=== PATIENT | male | born 1990 | race Caucasian/White ===

== ENCOUNTER 2019-03-17 13:54 | Emergency (ER) | payer OTHER, MEDICAID, SELFPAY ==
--- NOTE | 2019-03-17 14:14 | DI.RAD.S_ITS ---
PROCEDURE: XR SACRUM COCCYX MIN 2V INDICATIONS: pain sp fall TECHNIQUE: 3 views of the sacrum and coccyx acquired. COMPARISON: None. FINDINGS: Bones: No displaced fractures or dislocations of the sacrum or coccyx are evident. There may be early degenerative changes of the right sacroiliac joint. No widening of the sacroiliac joints is evident. Moderate degenerative changes of the pubic symphysis are present. Soft tissues: Visualized bowel gas pattern is normal. No suspicious soft tissue densities. IMPRESSION: No displaced sacrococcygeal fractures are evident. Dictated by: Chandrakant Xiong M.D. on 03/17/2019 at 13:54 Approved by: Chandrakant Xiong M.D. on 03/17/2019 at 13:55
--- NOTE | 2019-03-17 14:14 | DI.RAD.S_ITS ---
PROCEDURE: XR LUMBAR SPINE 2-3V INDICATIONS: pain sp fall TECHNIQUE: 3 views of the lumbar spine were acquired. COMPARISON: [facility], CR, XR CHEST 2 VIEWS, 07/12/2018, 14:55. FINDINGS: Bones: There are 5 lumbar-type vertebral bodies. The lowest intervertebral disk space is designated as L5-S1. There is an age-indeterminate anterior wedge deformity evident involving the L3 vertebral body with approximately 30% anterior vertebral height loss. Mild anterior wedging involving the L4 and L5 vertebral bodies is also present with approximately 5-10% anterior vertebral height loss. Otherwise, the remainder of the vertebral body heights are well-maintained without evidence to suggest an acute compression fracture. The bone mineralization is within normal limits. Mild degenerative changes of the lumbar spine are more prominent involving the lower lumbar facet joints. Soft tissues: The soft tissues of the imaged abdomen and pelvis are within normal limits. IMPRESSION: 1. Age indeterminant L3, L4, and L5 compression deformities. MRI may be helpful for better transition, if indicated. 2. Mild degenerative changes of the lumbar spine. Dictated by: Chandrakant Xiong M.D. on 03/17/2019 at 13:52 Approved by: Chandrakant Xiong M.D. on 03/17/2019 at 13:54
--- NOTE | 2019-03-17 14:14 | DI.RAD.S_ITS ---
PROCEDURE: XR THORACIC SPINE 2V INDICATIONS: pain sp fall TECHNIQUE: 2 views of the thoracic spine were acquired. COMPARISON: None. FINDINGS: Bones: On the lateral views, the cervicothoracic junction is not adequately visualized. The vertebral body heights are within normal limits throughout the thoracic spine without evidence to suggest acute compression fracture. The bone mineralization is within normal limits. Mild to moderate degenerative changes of the mid to lower thoracic spine are present. Soft tissues: The imaged overlying soft tissues of the chest are within normal limits. IMPRESSION: 1. No acute fractures of the thoracic spine are appreciated. 2. [id number] degenerative changes of the lower thoracic spine. Dictated by: Chandrakant Xiong M.D. on 03/17/2019 at 13:56 Approved by: Chandrakant Xiong M.D. on 03/17/2019 at 13:57
[2019-03-17 14:31] VITALS: BP 142/79; PULSE 79; RESP 18; TEMP 36.7; O2SAT 97; BMI 27.5
[2019-03-17] MEDS: LIDOCAINE PATCH 1 EACH ADH..PATCH TOP (14:46)
[2019-03-17] MEDS: HYDROCODONE/ACET 5/325 TABLET 1 TAB PO ×2 (14:47→16:05)
[2019-03-17] MEDS: KETOROLAC 60 MG/2 ML VIAL IM (14:47)
--- NOTE | 2019-03-17 14:53 | PC.NURSE ---
Pt fell on stairs,down 3 stairs on his bottom. Pt c/o left lower back pain and left buttock pain. Pt denies any loss of bowel/bladder. Pt has hx of back fractures
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
[2019-03-17 16:39] VITALS: BP 124/68; PULSE 68
== END 2019-03-17 16:39 | disposition home or self-care (01) ==
PROVIDERS: Emergency Provider Nurse Practitioner Family; PCP Nurse Practitioner Family
DX: S39.012A Strain of muscle, fascia and tendon of lower back, initial encounter (principal); W10.9XXA Fall (on) (from) unspecified stairs and steps, initial encounter
CPT/HCPCS: 72070; 72100; 72220; 96372; 99282; 99283; J1885

== ENCOUNTER 2020-02-14 18:29 | Emergency (ER) | payer OTHER, MEDICAID, SELFPAY ==
[2020-02-14 18:30] VITALS: BP 140/90; PULSE 100; RESP 18; TEMP 36.9; O2SAT 100; BMI 28.1
--- NOTE | 2020-02-14 18:47 | ED_ITS ---
HPI - Extremity Problem <KOMAL Preciado - Last Filed: 02/14/20 20:39> General Chief complaint: Extremity Problem,Nontraumatic Stated complaint: right elbow pain and large swelling mass Time Seen by Provider: 02/14/20 18:37 Source: patient Mode of arrival: Ambulatory Limitations: no limitations History of Present Illness HPI Narrative: 29-year-old male, presents emergency department for right elbow swelling for the past week. 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 Patient states approximately week ago he noticed a dull aching pain developing in his elbow and then swelling occurred. He states the swelling has been consistent but the pain is continued. He denies any trauma to the elbow, recent falls, shoulder pain, wrist pain, or any other injury. He denies any history of bursitis. He states the pain is worse with pressure directly on that area. He denies any fevers, chills, nausea, vomiting, diarrhea, chest pain, shortness of breath, or any other concerns. Patient denies any significant history other than past fractures of his lumbar spine. Related Data Previous Rx's Medication Instructions Recorded hydrocodone-acetaminophen [[place]] 1 tab PO Q4-6H PRN #10 tab 03/17/19 ketorolac 10 mg PO TID PRN #14 tab 03/17/19 ketorolac 10 mg PO Q6H PRN 5 Days #20 tab 02/14/20 Allergies Allergy/AdvReac Type Severity Reaction Status Date / Time No Known Drug Allergies Allergy Verified 02/14/20 18:38 Review of Systems <KOMAL Preciado - Last Filed: 02/14/20 20:39> Review of Systems Narrative: REVIEW OF SYSTEMS: GENERAL: Denies fever or chills. HENT: No head trauma. CARDIOVASCULAR: No chest pain. RESPIRATORY: No shortness of breath or cough. GASTROINTESTINAL: No nausea, vomiting, diarrhea, or constipation. GENITOURINARY: No flank pain. MUSCULOSKELETAL: Complains of right elbow pain, see HPI. INTEGUMENTARY: No rash, lesions, or pruritus. NEURO: No numbness, tingling. Patient History <KOMAL Preciado - Last Filed: 02/14/20 20:39> Medical History History of compression fracture of spine (Acute) Social History Smoking Status: Never smoker Smoking Status: Never smoker alcohol intake frequency: a few times a week Substance Use Type: does not use Exam <KOMAL Preciado - Last Filed: 02/14/20 20:39> Initial Vital Signs Initial Vital Signs: Vital Signs Temperature 98.5 F 02/14/20 18:30 Pulse Rate 100 H 02/14/20 18:30 Respiratory Rate 18 02/14/20 18:30 Blood Pressure 140/90 02/14/20 18:30 Pulse Oximetry 100 02/14/20 18:30 PHYSICAL EXAMINATION: GENERAL: 29-year-old healthy appearing male, awake and alert, answers questions promptly and appropriately. HENT: Normocephalic, atraumatic. EYES: Symmetrical, sclera white, no periorbital swelling. CARDIOVASCULAR: Regular rate. RESPIRATORY: Normal respiratory rate, trachea midline, airway patent. No stridor, nasal flaring or accessory muscle use. MUSCULOSKELETAL: Swelling and tenderness noted to right olecranon bursa, slight amount of erythema noted, no increased temp. Patient has decreased flexion elbow due to pain. No pain with palpation of shoulder or wrist. No surrounding laceration or significant erythema that would indicate cellulitis. Normal gait and coordination. Equal tone and mass bilaterally. Equal portfolio accountant strength bilaterally. SKIN: Warm, dry, soft, appropriate color for ethnicity. No lesions, rashes, or wounds. NEURO: Alert and Oriented X 3. No sensory deficits. PSYCH: Appropriate affect and mood. <Janice Oh MD - Last Filed: 02/14/20 22:59> Initial Vital Signs Initial Vital Signs: Vital Signs Temperature 98.5 F 02/14/20 18:30 Pulse Rate 100 H 02/14/20 18:30 Respiratory Rate 18 02/14/20 18:30 Blood Pressure 140/90 02/14/20 18:30 Pulse Oximetry 100 02/14/20 18:30 Course <KOMAL Preciado - Last Filed: 02/14/20 20:39> Course Course Narrative: IM Toradol injection given in department. Orders Ordered: Discontinued Medications Ketorolac Tromethamine (Toradol) 30 mg IM NOW ONE Stop: 02/14/20 18:57 Last Admin: 02/14/20 19:01 Dose: 30 mg Documented by: EMMA Vital Signs Vital signs: Vital Signs - 8 hr 02/14/20 18:30 02/14/20 19:16 Temperature 98.5 F Pulse Rate 100 H 96 H Respiratory Rate 18 16 Blood Pressure 140/90 140/90 Pulse Oximetry 100 99 <Janice Oh MD - Last Filed: 02/14/20 22:59> Orders Ordered: Discontinued Medications Ketorolac Tromethamine (Toradol) 30 mg IM NOW ONE Stop: 02/14/20 18:57 Last Admin: 02/14/20 19:01 Dose: 30 mg Documented by: EMMA Vital Signs Vital signs: Vital Signs - 8 hr 02/14/20 18:30 02/14/20 19:16 Temperature 98.5 F Pulse Rate 100 H 96 H Respiratory Rate 18 16 Blood Pressure 140/90 140/90 Pulse Oximetry 100 99 MDM - Extremity (Nontraumatic) <KOMAL Preciado - Last Filed: 02/14/20 20:39> Medical Records Attestation: I reviewed the patient's medical records. Lab Data Attestation: I reviewed the patient's lab results. MDM Narrative Medical decision making narrative: History and examination concerning for inflammatory bursitis given work history, symptoms have been ongoing for week, and clear olecranon bursa inflammation. Less likely infectious bursitis given lack of surrounding erythema, patient is afebrile and non tachycardic, symptoms have been ongoing for week that worsening swelling or worsening redness. No imaging indicated at this time due to lack of bony tenderness, lack of reports of trauma. Discussed with patient to take NSAIDs for the next few weeks to help with inflammation, decreased putting pressure on elbow. He was encouraged to follow- up with PCP if symptoms continue. He agrees to plan of care verbalized understanding. Discharge Plan Departure Patient Disposition: Home Clinical Impression: Bursitis Qualifiers: Bursitis location: elbow Elbow bursitis location: olecranon bursitis Laterality: right Qualified Code(s): M70.21 - Olecranon bursitis, right elbow Discharge Date/Time: 02/14/20 19:16 Instructions: DI for Elbow Bursitis Activity Restrictions/Additional Instructions: Thank you for entrusting me with your care today. As discussed, it appears you have bursitis, this often occurs from frequent use of your elbow including use your arm extensively and leaning or crawling around on your elbow. We have given you Toradol today to help with pain and inflammation. I have given you a prescription for Toradol, this will help decrease the inflammation, take this every 6 hours for the next few days. Do not take ibuprofen with this medication, once her Toradol as finished you may take ibuprofen. These medications will help decrease inflammation. I suggest decreasing frequent use of your elbow over the next 1-2 weeks, especially leaning on your elbow or putting pressure on it. Follow-up with your primary care provider or an orthopedic if symptoms continue over the next 4 weeks. Return emergency department for any new or worsening symptoms especially fevers, uncontrollable vomiting, or any other concerns. Prescriptions: New ketorolac 10 mg tablet 10 mg PO Q6H PRN (Reason: pain) 5 Days Qty: 20 RF: 0 No Action hydrocodone-acetaminophen [[place]] 5-325 mg tablet 1 tab PO Q4-6H PRN (Reason: pain) Qty: 10 RF: 0 ketorolac 10 mg tablet 10 mg PO TID PRN (Reason: pain) Qty: 14 RF: 0 Referrals: Sally Valdez ARNP [Primary Care Provider] - <Janice Oh MD - Last Filed: 02/14/20 22:59> [facility] Attestation: I was immediately available in the department for consultation throughout this patient's visit. I agree with documentation as above. Janice Oh MD
[2020-02-14] MEDS: KETOROLAC 60 MG/2 ML VIAL 30 MG IM (19:01)
[2020-02-14 19:16] VITALS: BP 140/90; PULSE 96; RESP 16; O2SAT 99
== END 2020-02-14 19:16 | disposition home or self-care (01) ==
PROVIDERS: Emergency Provider Nurse Practitioner; PCP Nurse Practitioner Family
DX: M70.21 Olecranon bursitis, right elbow (principal)
CPT/HCPCS: 96372; 99283; J1885

== ENCOUNTER 2020-02-21 20:19 | Emergency (ER) | payer OTHER, MEDICAID, SELFPAY ==
[2020-02-21 20:24] VITALS: BP 138/81; PULSE 91; RESP 17; TEMP 36.8; O2SAT 99; BMI 28.1
[2020-02-21 20:44] LABS: Add Manual Diff / Slide Review NO; Basophils Absolute Auto 100 /uL (0-100); Basophils Percent Auto 0.6 % (0-2); Eosinophils Absolute Auto 0 /uL (0-450); Hematocrit 47.9 % (41-53); Hemoglobin 15.7 g/dL (13.5-17.5); Lymphocytes Absolute Auto 1600 /uL (1100-4500); Lymphocytes Percent Auto 7.5 % (25-40); Mean Corpuscular HGB Conc 32.7 % (30-36); Mean Corpuscular Volume 85.5 fL (80-100); Monocytes Absolute Auto 1900 /uL (0-900); Monocytes Percent Auto 9.1 % (3-14); Neutrophils Absolute Auto 17100 /uL (1500-7000); Neutrophils Percent Auto 82.8 % (50-75); Platelet Count 351 X10^3/uL (150-400); Red Cell Distribution Width 15.2 % (11.6-14.8); White Blood Cell Count 20.7 X10^3/uL (4.5-11.0)
[2020-02-21 20:54] LABS: INR 1.1 (0.9-1.3); Prothrombin Time 12.6 SECONDS (10.1-12.7)
[2020-02-21 20:57] LABS: PTT Partial Thromboplastin Tim 30 SECONDS (26.4-36.2)
[2020-02-21 21:00] LABS: Alanine Aminotransferase 32 IU/L (<50); Albumin 4.9 g/dL (3.5-5.0); Albumin Globulin Ratio 1.4 (1.0-2.8); Alkaline Phosphatase 104 U/L (38-126); Aspartate Aminotransferase 40 IU/L (17-59); BUN Creatinine Ratio 22.9 (6-22); Bilirubin Total 0.6 mg/dL (0.2-1.3); Blood Urea Nitrogen 24 mg/dL (9-20); Calcium 9.3 mg/dL (8.4-10.2); Carbon Dioxide 25 mmol/L (22-32); Chloride 100 mmol/L (98-107); Estimated Glomerular Filt Rate > 60.0 mL/min (>60); Globulin 3.6 g/dL (1.7-4.1); Glucose 83 mg/dL (70-100); HEMOLYSIS < 15 (0-50); Lipase 52 U/L (23-300); Potassium 4.5 mmol/L (3.4-5.1); Sodium 134 mmol/L (137-145); Total Protein 8.5 g/dL (6.3-8.2)
[2020-02-21 21:13] VITALS: BP 129/63; PULSE 85; O2SAT 96
[2020-02-21] MEDS: SODIUM CHLORIDE 0.9% 1,000 ML 1000 ML IV ×3 (21:15→22:51)
[2020-02-21 21:30] VITALS: BP 136/82; PULSE 88; O2SAT 96
[2020-02-21 21:38] LABS: Creatine Kinase 382 U/L (55-170)
[2020-02-21 21:51] LABS: Troponin I < 0.012 ng/mL (0.01-0.034)
[2020-02-21 21:54] LABS: Creatine Kinase MB 3.74 ng/mL (<2.37)
[2020-02-21 22:00] VITALS: BP 128/79; PULSE 83; O2SAT 95
[2020-02-21 22:07] LABS: Appearance Urine UA CLEAR; Bacteria Urine None Seen; Bilirubin Urine UA NEGATIVE (NEGATIVE); Color Urine UA YELLOW; Glucose Urine UA NEGATIVE (Negative); Ketones Urine UA 2+ (NEGATIVE); Leukocyte Esterase Urine UA NEGATIVE (NEGATIVE); Nitrite Urine UA NEGATIVE (Negative); Occult Blood Urine UA NEGATIVE (Negative); Protein Urine UA NEGATIVE (Negative); RBC Urine None Seen (0-5/HPF); Urobilinogen Urine UA 0.2 E.U./dL (0.2); WBC Urine None Seen (0-5/HPF); pH Urine UA 5.5 (4.5-8.0)
[2020-02-21 22:30] VITALS: BP 128/77; PULSE 84; O2SAT 96
--- NOTE | 2020-02-21 22:38 | ED_ITS ---
HPI - Weakness General Chief complaint: Abdominal Pain Stated complaint: thinks heat exhaustion Time Seen by Provider: 02/21/20 20:30 Source: patient Mode of arrival: Ambulatory Limitations: no limitations History of Present Illness HPI Narrative: 29M nonsmoker with non-contributory medical history presents with his significant other and the chief complaint of multiple episodes of vomiting, generalized weakness, and fatigue over the course of the day. He admits to perfoming significant physical exertion for much of the day with heavy lifting, digging, and other manual labor. He admits to sweating heavily. He admits to eating some food for lunch and trying to drink enough water, but admittedly feels terrible now. MD Complaint: generalized weakness Onset (ago): hour(s) Duration: constant Location: generalized Quality: aching Relieving factors: none Exacerbating factors: none Associated symptoms: nausea/vomiting and myalgias Related Data Previous Rx's Medication Instructions Recorded hydrocodone-acetaminophen [[place]] 1 tab PO Q4-6H PRN #10 tab 03/17/19 ketorolac 10 mg PO TID PRN #14 tab 03/17/19 Allergies Allergy/AdvReac Type Severity Reaction Status Date / Time No Known Drug Allergies Allergy Verified 02/14/20 18:38 Review of Systems Constitutional Constitutional: Denies chills, Denies fatigue, Denies fever(s), Denies frequent falls, Denies lethargy and Denies weakness Eyes Eyes: Denies change in vision, Denies eye discharge, Denies irritation and Denies loss of vision ENT Ears, Nose, Mouth, and Throat: Denies change in voice, Denies dizziness, Denies neck pain, Denies sore throat and Denies throat swelling Cardiovascular Cardiovascular: Denies chest pain, Denies irregular heart rhythm, Denies lightheadedness, Denies palpitations, Denies dyspnea, Denies dyspnea on exertion and Denies orthopnea Respiratory Respiratory: Denies cough, Denies dyspnea, Denies dyspnea on exertion and Denies wheezing Gastrointestinal Gastrointestinal: Denies abdominal pain, Denies change in bowel habits, Denies diarrhea, Reports nausea and Reports vomiting Musculoskeletal Musculoskeletal: Reports myalgias, Denies neck pain and Denies numbness Integumentary/Breasts Skin/Breast: Denies pruritus, Denies erythema, Denies rash and Denies wounds Neurologic Neurologic: Denies behavioral changes, Denies confusion, Denies dizziness, Denies frequent falls, Denies loss of vision, Denies numbness and Denies weakness Psychiatric Psychiatric: Denies anxiety, Denies behavioral changes, Denies confusion, Denies depression, Denies homicidal ideation and Denies suicidal ideation Endocrine Endocrine: Denies fatigue, Denies flushing and Denies palpitations Hematologic/Lymphatic Hematologic/Lymphatic: Denies easy bruising Allergic/Immunologic Allergic/Immunologic: Denies urticaria, Denies throat swelling and Denies wheezing Patient History Medical History History of compression fracture of spine (Acute) Social History Smoking Status: Never smoker Smoking Status: Never smoker alcohol intake frequency: a few times a week Substance Use Type: does not use Exam Narrative Exam Narrative: GENERAL: [29] year old patient appears stated age. Well-nourished, well-developed patient, in mild distress. HEAD: Atraumatic. Normocephalic. EYES: Pupils equal round and reactive. Extraocular motions intact. No scleral icterus. No injection or drainage. ENT: Nose without bleeding, purulent drainage. Throat without erythema, tonsillar hypertrophy or exudate. Airway patent. NECK: Trachea midline. Non tender CARDIOVASCULAR: Regular rate and rhythm without murmurs, gallops, or rubs. RESPIRATORY: Clear to auscultation. Breath sounds equal bilaterally. No wheezes, rales, or rhonchi. GASTROINTESTINAL: Abdomen soft, non-tender, nondistended. EXTREMITIES: No edema or joint tenderness. BACK: Nontender without deformity or crepitance. No flank tenderness. NEURO: AOx3. SKIN: No rash or erythema of visible areas Initial Vital Signs Initial Vital Signs: Vital Signs Temperature 98.2 F 02/21/20 20:24 Pulse Rate 91 H 02/21/20 20:24 Respiratory Rate 17 02/21/20 20:24 Blood Pressure 138/81 02/21/20 20:24 Pulse Oximetry 99 02/21/20 20:24 Course Orders Ordered: ED Orders 02/21/20 20:29 EKG-12 Lead Stat 02/21/20 20:35 Complete Blood Count AUTO DIFF Stat Comprehensive Metabolic Panel Stat Lipase Stat Partial Thromboplastin Time Stat Prothrombin Time INR Stat 02/21/20 21:28 Troponin & CK Cardiac Panel Stat 02/21/20 21:55 Urinalysis and Microscopic Stat 02/21/20 22:50 Creatine Kinase Stat White Blood Cell Count Stat Discontinued Medications Sodium Chloride (Normal Saline 0.9%) 1,000 mls @ 1,000 mls/hr IV BOLUS ONE Stop: 02/21/20 22:10 Last Infusion: 02/21/20 22:08 Dose: 0 mls/hr Documented by: Admin: 02/21/20 21:15 Dose: 1,000 mls/hr Documented by: NESHA Sodium Chloride (Normal Saline 0.9%) 1,000 mls @ 1,000 mls/hr IV BOLUS ONE Stop: 02/21/20 23:40 Last Infusion: 02/21/20 23:02 Dose: 0 mls/hr Documented by: Admin: 02/21/20 22:10 Dose: 1,000 mls/hr Documented by: NESHA Sodium Chloride (Normal Saline 0.9%) 1,000 mls @ 1,000 mls/hr IV BOLUS ONE Stop: 02/21/20 23:43 Last Infusion: 02/21/20 23:32 Dose: 0 mls/hr Documented by: Admin: 02/21/20 22:51 Dose: 1,000 mls/hr Documented by: NESHA Ondansetron HCl (Zofran Odt Prepack) 1 bottle MISC SEEINSTR ONE Stop: 02/21/20 23:15 Last Admin: 02/21/20 23:31 Dose: 1 bottle Documented by: NESHA Reevaluation(s) Reevaluation #1: Patient has tremendous, if not complete resolution of symptoms after the above-stated therapies. Extensive return precautions given and questions answered to his apparent satisfaction Vital Signs Vital signs: Vital Signs - 8 hr 02/21/20 20:24 02/21/20 21:13 02/21/20 21:30 Temperature 98.2 F Pulse Rate 91 H 85 88 Respiratory Rate 17 Blood Pressure 138/81 129/63 136/82 Pulse Oximetry 99 96 96 02/21/20 22:00 02/21/20 22:30 02/21/20 23:00 Temperature Pulse Rate 83 84 78 Respiratory Rate Blood Pressure 128/79 128/77 133/78 Pulse Oximetry 95 96 96 MDM - Weakness Lab Data Result diagrams: 02/21/20 22:50 02/21/20 20:35 Labs: Lab Results 02/21/20 02/21/20 02/21/20 Range/Units 20:35 20:35 20:35 WBC 20.7 H (4.5-11.0) X10^3/uL RBC 5.60 (4.5-5.9) X10^6/uL Hgb 15.7 (13.5-17.5) g/dL Hct 47.9 (41-53) % MCV 85.5 (80-100) fL MCH 28.0 (26-34) PG MCHC 32.7 (30-36) % RDW 15.2 H (11.6-14.8) % Plt Count 351 (150-400) X10^3/uL Neut % (Auto) 82.8 H (50-75) % Lymph % (Auto) 7.5 L (25-40) % [place] % (Auto) 9.1 (3-14) % Eos % (Auto) 0.0 L (2-4) % Baso % (Auto) 0.6 (0-2) % Neut # (Auto) 44454 H (8749-9940) /uL Lymph # (Auto) 1600 (6944-9649) /uL [place] # (Auto) 1900 H (0-900) /uL Eos # (Auto) 0 (0-450) /uL Baso # (Auto) 100 (0-100) /uL PT 12.6 (10.1-12.7) SECONDS INR 1.1 (0.9-1.3) APTT 30 (26.4-36.2) SECONDS Sodium 134 L (137-145) mmol/L Potassium 4.5 (3.4-5.1) mmol/L Chloride 100 (98-107) mmol/L Carbon Dioxide 25 (22-32) mmol/L BUN 24 H (9-20) mg/dL Creatinine 1.05 (0.66-1.25) mg/dL Estimated GFR > 60.0 (>60) mL/min BUN/Creatinine Ratio 22.9 H (6-22) Glucose 83 (70-100) mg/dL Calcium 9.3 (8.4-10.2) mg/dL Total Bilirubin 0.6 (0.2-1.3) mg/dL AST 40 (17-59) IU/L ALT 32 (<50) IU/L Alkaline Phosphatase 104 (38-126) U/L Total Creatine Kinase (55-170) U/L CK-MB (CK-2) (<2.37) ng/mL CK-MB (CK-2) Rel Index (1.5-5.0) % Troponin I (0.01-0.034) ng/mL Total Protein 8.5 H (6.3-8.2) g/dL Albumin 4.9 (3.5-5.0) g/dL Globulin 3.6 (1.7-4.1) g/dL Albumin/Globulin Ratio 1.4 (1.0-2.8) Lipase 52 (23-300) U/L Urine Color Urine Appearance Urine pH (4.5-8.0) Ur Specific [place] (1.000-1.035) Urine Protein (Negative) Urine Glucose (UA) (Negative) g/dL Urine Ketones (NEGATIVE) Urine Occult Blood (Negative) Urine Nitrate (Negative) Urine Bilirubin (NEGATIVE) Urine Urobilinogen (0.2) E.U./dL Ur Leukocyte Esterase (NEGATIVE) Urine RBC (0-5/HPF) Urine WBC (0-5/HPF) Urine Bacteria (None) Ur Culture Indicated? 02/21/20 02/21/20 02/21/20 Range/Units 21:28 21:55 22:50 WBC 15.9 H (4.5-11.0) X10^3/uL RBC (4.5-5.9) X10^6/uL Hgb (13.5-17.5) g/dL Hct (41-53) % MCV (80-100) fL MCH (26-34) PG MCHC (30-36) % RDW (11.6-14.8) % Plt Count (150-400) X10^3/uL Neut % (Auto) (50-75) % Lymph % (Auto) (25-40) % [place] % (Auto) (3-14) % Eos % (Auto) (2-4) % Baso % (Auto) (0-2) % Neut # (Auto) (6898-1590) /uL Lymph # (Auto) (3777-0084) /uL [place] # (Auto) (0-900) /uL Eos # (Auto) (0-450) /uL Baso # (Auto) (0-100) /uL PT (10.1-12.7) SECONDS INR (0.9-1.3) APTT (26.4-36.2) SECONDS Sodium (137-145) mmol/L Potassium (3.4-5.1) mmol/L Chloride (98-107) mmol/L Carbon Dioxide (22-32) mmol/L BUN (9-20) mg/dL Creatinine (0.66-1.25) mg/dL Estimated GFR (>60) mL/min BUN/Creatinine Ratio (6-22) Glucose (70-100) mg/dL Calcium (8.4-10.2) mg/dL Total Bilirubin (0.2-1.3) mg/dL AST (17-59) IU/L ALT (<50) IU/L Alkaline Phosphatase (38-126) U/L Total Creatine Kinase 382 H (55-170) U/L CK-MB (CK-2) 3.74 H (<2.37) ng/mL CK-MB (CK-2) Rel Index 1.0 L (1.5-5.0) % Troponin I < 0.012 (0.01-0.034) ng/mL Total Protein (6.3-8.2) g/dL Albumin (3.5-5.0) g/dL Globulin (1.7-4.1) g/dL Albumin/Globulin Ratio (1.0-2.8) Lipase (23-300) U/L Urine Color Yellow Urine Appearance Clear Urine pH 5.5 (4.5-8.0) Ur Specific [place] 1.020 (1.000-1.035) Urine Protein Negative (Negative) Urine Glucose (UA) Negative (Negative) g/dL Urine Ketones 2+ H (NEGATIVE) Urine Occult Blood Negative (Negative) Urine Nitrate Negative (Negative) Urine Bilirubin Negative (NEGATIVE) Urine Urobilinogen 0.2 (0.2) E.U./dL Ur Leukocyte Esterase Negative (NEGATIVE) Urine RBC None seen (0-5/HPF) Urine WBC None seen (0-5/HPF) Urine Bacteria None seen (None) Ur Culture Indicated? Cult not indicated 10/22/20 Range/Units 22:50 WBC (4.5-11.0) X10^3/uL RBC (4.5-5.9) X10^6/uL Hgb (13.5-17.5) g/dL Hct (41-53) % MCV (80-100) fL MCH (26-34) PG MCHC (30-36) % RDW (11.6-14.8) % Plt Count (150-400) X10^3/uL Neut % (Auto) (50-75) % Lymph % (Auto) (25-40) % [place] % (Auto) (3-14) % Eos % (Auto) (2-4) % Baso % (Auto) (0-2) % Neut # (Auto) (7671-7349) /uL Lymph # (Auto) (2126-0282) /uL [place] # (Auto) (0-900) /uL Eos # (Auto) (0-450) /uL Baso # (Auto) (0-100) /uL PT (10.1-12.7) SECONDS INR (0.9-1.3) APTT (26.4-36.2) SECONDS Sodium (137-145) mmol/L Potassium (3.4-5.1) mmol/L Chloride (98-107) mmol/L Carbon Dioxide (22-32) mmol/L BUN (9-20) mg/dL Creatinine (0.66-1.25) mg/dL Estimated GFR (>60) mL/min BUN/Creatinine Ratio (6-22) Glucose (70-100) mg/dL Calcium (8.4-10.2) mg/dL Total Bilirubin (0.2-1.3) mg/dL AST (17-59) IU/L ALT (<50) IU/L Alkaline Phosphatase (38-126) U/L Total Creatine Kinase 341 H (55-170) U/L CK-MB (CK-2) (<2.37) ng/mL CK-MB (CK-2) Rel Index (1.5-5.0) % Troponin I (0.01-0.034) ng/mL Total Protein (6.3-8.2) g/dL Albumin (3.5-5.0) g/dL Globulin (1.7-4.1) g/dL Albumin/Globulin Ratio (1.0-2.8) Lipase (23-300) U/L Urine Color Urine Appearance Urine pH (4.5-8.0) Ur Specific [place] (1.000-1.035) Urine Protein (Negative) Urine Glucose (UA) (Negative) g/dL Urine Ketones (NEGATIVE) Urine Occult Blood (Negative) Urine Nitrate (Negative) Urine Bilirubin (NEGATIVE) Urine Urobilinogen (0.2) E.U./dL Ur Leukocyte Esterase (NEGATIVE) Urine RBC (0-5/HPF) Urine WBC (0-5/HPF) Urine Bacteria (None) Ur Culture Indicated? Discharge Plan Departure Patient Disposition: Home Clinical Impression: Acute dehydration Vomiting Qualifiers: Vomiting type: unspecified Vomiting Intractability: non-intractable Nausea presence: with nausea Qualified Code(s): R11.2 - Nausea with vomiting, unspecified Discharge Date/Time: 02/21/20 23:41 Instructions: DI for Dehydration -- Adult Activity Restrictions/Additional Instructions: 1. Drink plenty of fluids with frequent small sips. 2. For the next 24 hours a clear liquid diet is advised. After that please employ a B.R.A.T. diet which would include bananas, rice, apples, toast and other mild food items 3. Please take medications as directed. 4. Please follow-up with your doctor in the next 1-2 days. Call the office for an appointment. 5. Please return to the emergency Department for any worsening or persistent symptoms, such as severe pain or fever. Prescriptions: No Action hydrocodone-acetaminophen [[place]] 5-325 mg tablet 1 tab PO Q4-6H PRN (Reason: pain) Qty: 10 RF: 0 ketorolac 10 mg tablet 10 mg PO TID PRN (Reason: pain) Qty: 14 RF: 0 Referrals: Sally Valdez ARNP [Primary Care Provider] -
--- NOTE | 2020-02-21 22:46 | PC.NURSE ---
Reports 8 episodes of vomiting
[2020-02-21 23:00] VITALS: BP 133/78; PULSE 78; O2SAT 96
[2020-02-21 23:02] LABS: White Blood Cell Count 15.9 X10^3/uL (4.5-11.0)
[2020-02-21 23:05] LABS: Culture Indicated Urine Cult Not Indicated
[2020-02-21 23:10] LABS: Creatine Kinase 341 U/L (55-170)
[2020-02-21] MEDS: ONDANSETRON 4 MG ODT PREPACK 1 BOTTLE MISC (23:31)
== END 2020-02-21 23:41 | disposition home or self-care (01) ==
PROVIDERS: Emergency Provider Emergency Medicine; PCP Nurse Practitioner Family
DX: E86.0 Dehydration (principal); R11.2 Nausea with vomiting, unspecified; R53.83 Other fatigue
CPT/HCPCS: 36415; 80053; 81001; 82550; 82553; 83690; 84484; 85025; 85048; 85610; 85730; 96360; 96361; 99284